=== PATIENT | female | born 1980 | race Caucasian/White ===

== ENCOUNTER → 2020-11-28 16:43 | Outpatient (CLI) | payer BC, SELFPAY ==
[2020-11-28 17:09] LABS: COVID19 -Nasal RAPID Negative (Negative)
== END ==
PROVIDERS: Visit Provider Physician Assistant
DX: R06.02 Shortness of breath (principal); R42 Dizziness and giddiness; Z20.822 Contact with and (suspected) exposure to COVID-19
CPT/HCPCS: 87635

== ENCOUNTER → 2020-11-30 10:47 | Outpatient (CLI) | payer BC, SELFPAY ==
[2020-11-30] MEDS: COVID-19 VACC #1, MRNA(MOD) 100 MCG/0.5 ML VIAL IM (10:53)
== END ==
PROVIDERS: Visit Provider Internal Medicine
DX: Z23 Encounter for immunization (principal)
CPT/HCPCS: 0011A; 91301

== ENCOUNTER 2024-03-18 21:20 | Emergency (ER) | payer BC, SELFPAY ==
[2024-03-18] VITALS (8 sets, daily range): BP systolic 113–137; BP diastolic 71–84; PULSE 67–75; RESP 10–26; TEMP 36.7; O2SAT 94–99; BMI 20.1
--- NOTE | 2024-03-18 22:08 | ED_ITS ---
HPI - Abdominal Pain General Chief Complaint: Abdominal Pain Stated Complaint: severe abd pain Time Seen by Provider: 03/18/24 21:31 Source: patient Mode of arrival: Ambulatory History of Present Illness HPI narrative: 44-year-old female presents by private vehicle from home for generalized abdominal pain with nausea and vomiting as well as ?bloody flecks? in her stool. Symptoms began yesterday and have worsened in intensity. Taking Tylenol and ibuprofen at home for symptoms without significant relief. Related Data Home Medications Medication Instructions Recorded Confirmed lisdexamfetamine 50 mg capsule 50 mg PO DAILY 11/28/20 11/28/20 (Vyvanse) Previous Rx's Medication Instructions Recorded amoxicillin 875 mg-potassium 1 tab PO Q12H #20 tabs 03/19/24 clavulanate 125 mg tablet hydrocodone 5 mg-acetaminophen 325 1 tab PO Q8H PRN pain #10 tabs 03/19/24 mg tablet ondansetron 4 mg disintegrating 4 mg PO Q8H PRN nausea and 03/19/24 tablet vomiting #30 tabs Allergies Allergy/AdvReac Type Severity Reaction Status Date / Time No Known Drug Allergies Allergy Unverified 11/28/20 16:42 Patient History Social History Smoking Status: Never smoker Smoking Status: Never smoker Substance Use Type: does not use Exam Initial Vital Signs Initial Vital Signs: Vital Signs Blood Pressure 123/77 03/18/24 21:37 Const: Awake, alert, uncomfortable, in pain, nontoxic appearing Cardiac: regular rate, regular rhythm RESP: unlabored, clear bilaterally, no wheezing GI: Soft, generalized tenderness to palpation without rebound or guarding Skin: Warm, Dry, intact, no rashes Neuro: AO x3, CN II-XII grossly intact, moves all extremities Course Orders Ordered: ED Orders 03/18/24 21:30 CBC Auto Diff [Complete Blood Count AUTO DIFF] Stat CMP [Comprehensive Metabolic Panel] Stat Lactate (Lactic Acid) Stat Lipase Stat 03/18/24 22:07 CT abdomen pelvis w con Stat Discontinued Medications Amoxicillin/Clavulanate Potassium (Amoxicillin/Clav 875/125 Mg) 1 tab PO NOW ONE Stop: 03/18/24 23:51 Last Admin: 03/19/24 00:01 Dose: 1 tab Documented By: Sodium Chloride (Normal Saline 0.9%) 1,000 mls @ 1,000 mls/hr IV BOLUS ONE Stop: 03/18/24 23:06 Last Infusion: 03/18/24 23:25 Dose: Infused Documented By: Admin: 03/18/24 22:20 Dose: 1,000 mls/hr Documented By: KULWANT Ketorolac Tromethamine (Ketorolac 30 Mg/Ml Vial) 15 mg IV NOW ONE Stop: 03/19/24 00:43 Last Admin: 03/19/24 01:13 Dose: Not Given Documented By: EZIO Morphine Sulfate (Morphine 4 Mg/Ml Inj) 4 mg IV NOW ONE Stop: 03/18/24 22:08 Last Admin: 03/18/24 22:20 Dose: 4 mg Documented By: KULWANT Vital Signs Vital signs: Vital Signs - 8 hr 03/18/24 21:46 03/18/24 22:00 03/18/24 22:00 Temperature 98.1 F Pulse Rate 74 67 Respiratory Rate 14 10 L Blood Pressure 123/77 113/71 Pulse Oximetry 97 94 Oxygen Delivery Method Room Air 03/18/24 22:30 03/18/24 22:30 03/18/24 23:00 Temperature Pulse Rate 67 Respiratory Rate 24 Blood Pressure 122/84 128/83 Pulse Oximetry 97 Oxygen Delivery Method 03/18/24 23:00 03/18/24 23:31 03/18/24 23:32 Temperature Pulse Rate 70 75 Respiratory Rate 26 H 26 H Blood Pressure 137/83 Pulse Oximetry 99 99 Oxygen Delivery Method 03/18/24 23:32 03/19/24 00:00 03/19/24 00:00 Temperature Pulse Rate 69 60 Respiratory Rate 25 H 23 Blood Pressure 124/76 Pulse Oximetry 99 97 Oxygen Delivery Method 03/19/24 00:30 03/19/24 00:31 03/19/24 00:31 Temperature Pulse Rate 61 62 Respiratory Rate 29 H 23 Blood Pressure 126/78 Pulse Oximetry 98 98 Oxygen Delivery Method 03/19/24 00:55 Temperature 97.6 F Pulse Rate Respiratory Rate Blood Pressure Pulse Oximetry Oxygen Delivery Method MDM - Abdominal Pain Differential Diagnosis Differential diagnosis: Likely abdominal pain, acute appendicitis and calculus of kidney Lab Data 03/18/24 21:30 03/18/24 21:30 Labs: Lab Results 03/18/24 Range/Units 21:30 WBC 10.9 (4.5-11.0) X10^3/uL RBC 4.23 (4.0-5.2) X10^6/uL Hgb 13.2 (12.0-16.0) g/dL Hct 39.4 (36-46) % MCV 93.2 (80-100) fL MCH 31.3 (26-34) PG MCHC 33.6 (30-36) % RDW 12.4 (11.6-14.8) % Plt Count 332 (150-400) X10^3/uL Neut % (Auto) 78.2 H (50-75) % Lymph % (Auto) 13.4 L (25-40) % [place] % (Auto) 7.1 (3-14) % Eos % (Auto) 0.7 L (2-4) % Baso % (Auto) 0.6 (0-2) % Neut # (Auto) 8500 H (1902-8681) /uL Lymph # (Auto) 1500 (6967-1912) /uL [place] # (Auto) 800 (0-900) /uL Eos # (Auto) 100 (0-450) /uL Baso # (Auto) 100 (0-100) /uL Sodium 137 (137-145) mmol/L Potassium 3.9 (3.4-5.1) mmol/L Chloride 106 (98-107) mmol/L Carbon Dioxide 27 (22-32) mmol/L BUN 18 H (7-17) mg/dL Creatinine 0.99 (0.52-1.04) mg/dL Estimated GFR > 60 (>60) mL/min BUN/Creatinine Ratio 18.2 (6-22) Glucose 103 H (70-100) mg/dL Lactate 0.8 (0.7-2.1) mmol/L Calcium 9.2 (8.4-10.2) mg/dL Total Bilirubin 0.7 (0.2-1.3) mg/dL AST 26 (14-36) IU/L ALT 17 (<35) IU/L Alkaline Phosphatase 50 (38-126) U/L Total Protein 6.9 (6.3-8.2) g/dL Albumin 4.2 (3.5-5.0) g/dL Globulin 2.7 (1.7-4.1) g/dL Albumin/Globulin Ratio 1.6 (1.0-2.8) Lipase 67 (23-300) U/L Imaging Data CT scan - abdomen/pelvis: Radiologist's Impression: PROCEDURE: CT ABDOMEN PELVIS W CON INDICATIONS: N/V/GEN ABD PAIN/'BLOODY STOOLS' TECHNIQUE: After the administration of intravenous contrast, axial sections acquired from the lung bases to the pubic symphysis. Coronal and sagittal reformats were performed. For radiation dose reduction, the following was used: automated exposure control, adjustment of mA and/or kV according to patient size. COMPARISON: None. FINDINGS: Image quality: Diagnostic. Lower Chest: No significant findings. ABDOMEN: Liver: No solid mass. Gallbladder: No radiopaque gallstones or wall thickening. Biliary ducts: No biliary dilation. Pancreas: No ductal dilation. Spleen: Size is within normal limits. Adrenal Glands: No adrenal nodules. Kidneys and Ureters: No hydronephrosis. No solid mass. No complex renal cystic lesion which requires follow up. Stomach and Bowel: No bowel obstruction. Colonic diverticula are present. There is prominent appearance thickening within the distal transverse and descending colon. Peritoneum: No abnormal intraperitoneal fluid. No free air. Ventral Wall: No significant ventral hernia. Abdominal Nodes: No retroperitoneal or mesenteric adenopathy by size criteria. Vessels: Aorta and inferior vena cava are normal in size. PELVIS: Pelvic Organs: 3.2 cm low-attenuation focus within the right adnexa.. Increased appearance of vascularity surrounding the uterus/ovaries in the pelvis. Bladder: No bladder wall thickening, accounting for underdistention. Pelvic Nodes: No enlarged lymph nodes. Miscellaneous: No inguinal hernias are seen. Bones: No aggressive osseous abnormality. IMPRESSION: Prominent thickening within the transverse and descending colon most suggestive of colitis likely secondary to diverticulitis. Right ovarian cyst. Prominent vascularity surrounding the uterus and pelvis. This can be seen with pelvic congestion syndrome. Recommend clinical correlation. Dictated by: Peggy Jean M.D. on 03/18/2024 at 23:42 Approved by: Peggy Jean M.D. on 03/18/2024 at 23:45 MDM Narrative Medical decision making narrative: Abdominal pain, generalized, with nausea and vomiting as well as blood flecks stools. Abdomen soft but generally tender without focality. Pain medications, labs, imaging ordered. Laboratory work is relatively unremarkable. No leukocytosis, normal liver enzymes, normal kidney function. CT of the abdomen and pelvis with contrast shows findings consistent with diverticulitis. Prominent vascularity in the uterus and pelvis seen, patient reports chronic pelvic pain and is followed by OBGYN. First dose of antibiotics given in emergency department. Patient counseled on results of labs and imaging. Antibiotics sent to pharmacy of choice. Short course of pain medications also sent to pharmacy with caveat that this may cause constipation which can worsen her symptoms. Recommended follow up with either GI or General surgery to discuss possibility of colonoscopy after diverticulitis flare improves. Referral provided. Discharge Plan Departure Patient Disposition: Home Clinical Impression: Diverticulitis Instructions: DI for Diverticulitis Activity Restrictions/Additional Instructions: Your laboratory work today was normal. The CT of your abdomen and pelvis showed mild inflammation of your colon concerning for diverticulitis. Finish all antibiotics as prescribed even if you feel better. I do recommend following up with a specialist for colonoscopy once the diverticulitis improves, a referral has been provided. Take Tylenol and ibuprofen for pain as needed, if this does not improve her symptoms a short course of pain medication has also been sent to your pharmacy. Be careful when taking this medication as it may cause drowsiness and constipation. Do not take this medication with alcohol or before driving Prescriptions: New amoxicillin-pot clavulanate 875-125 mg tablet 1 tab PO Q12H Qty: 20 0RF hydrocodone-acetaminophen 5-325 mg tablet 1 tab PO Q8H PRN (Reason: pain) Qty: 10 0RF ondansetron 4 mg tablet,disintegrating 4 mg PO Q8H PRN (Reason: nausea and vomiting) Qty: 30 0RF No Action Vyvanse 50 mg capsule 50 mg PO DAILY Referrals: Pawan Garzon MD [Physician] - Miscellaneous,MD Aidan [Primary Care Provider] - Stand Alone Forms: Patient Portal/API
[2024-03-18] MEDS: SODIUM CHLORIDE 0.9% 1,000 ML 1000 ML IV (22:20)
[2024-03-18] MEDS: MORPHINE 4 MG/ML INJ IV (22:20)
[2024-03-18 22:30] LABS: Add Manual Diff / Slide Review NO; Basophils Absolute Auto 100 /uL (0-100); Basophils Percent Auto 0.6 % (0-2); Eosinophils Absolute Auto 100 /uL (0-450); Eosinophils Percent Auto 0.7 % (2-4); Hematocrit 39.4 % (36-46); Hemoglobin 13.2 g/dL (12.0-16.0); Lymphocytes Absolute Auto 1500 /uL (1100-4500); Lymphocytes Percent Auto 13.4 % (25-40); Mean Corpuscular HGB Conc 33.6 % (30-36); Mean Corpuscular Hemoglobin 31.3 PG (26-34); Mean Corpuscular Volume 93.2 fL (80-100); Monocytes Absolute Auto 800 /uL (0-900); Monocytes Percent Auto 7.1 % (3-14); Neutrophils Absolute Auto 8500 /uL (1500-7000); Neutrophils Percent Auto 78.2 % (50-75); Platelet Count 332 X10^3/uL (150-400); Red Blood Cell Count 4.23 X10^6/uL (4.0-5.2); Red Cell Distribution Width 12.4 % (11.6-14.8); White Blood Cell Count 10.9 X10^3/uL (4.5-11.0)
[2024-03-18 22:33] LABS: Lactate (Lactic Acid) 0.8 mmol/L (0.7-2.1)
[2024-03-18 22:34] LABS: Alanine Aminotransferase 17 IU/L (<35); Albumin 4.2 g/dL (3.5-5.0); Albumin Globulin Ratio 1.6 (1.0-2.8); Alkaline Phosphatase 50 U/L (38-126); Aspartate Aminotransferase 26 IU/L (14-36); BUN Creatinine Ratio 18.2 (6-22); Bilirubin Total 0.7 mg/dL (0.2-1.3); Blood Urea Nitrogen 18 mg/dL (7-17); Calcium 9.2 mg/dL (8.4-10.2); Carbon Dioxide 27 mmol/L (22-32); Chloride 106 mmol/L (98-107); Estimated Glomerular Filt Rate > 60 mL/min (>60); Globulin 2.7 g/dL (1.7-4.1); Glucose 103 mg/dL (70-100); HEMOLYSIS < 15 (0-50); Lipase 67 U/L (23-300); Potassium 3.9 mmol/L (3.4-5.1); Sodium 137 mmol/L (137-145); Total Protein 6.9 g/dL (6.3-8.2)
[2024-03-19] VITALS: BP 124/76; PULSE 60; RESP 23; O2SAT 97
[2024-03-19] MEDS: AMOXICILLIN/CLAV 875/125 MG 1 TAB PO (00:01)
[2024-03-19 00:30] VITALS: PULSE 61; RESP 29; O2SAT 98
[2024-03-19 00:31] VITALS: BP 126/78; PULSE 62; RESP 23; O2SAT 98
[2024-03-19 00:55] VITALS: TEMP 36.4
== END 2024-03-19 00:56 | disposition home or self-care (01) ==
PROVIDERS: Emergency Provider Emergency Medicine
DX: K57.92 Diverticulitis of intestine, part unspecified, without perforation or abscess without bleeding (principal); R11.2 Nausea with vomiting, unspecified
CPT/HCPCS: 36415; 74177; 80053; 83605; 83690; 85025; 96361; 96374; 99284; J2270; Q9967